=== PATIENT | male | born 1995 | race African-American/Black ===

== ENCOUNTER 2018-09-30 09:45 | Emergency (ER) | payer OTHER ==
[2018-09-30] MEDS ORDERED: Acetaminophen 500 MG TAB ONE (10:10)
[2018-09-30] MEDS ORDERED: Ketorolac Tromethamine 60 MG/2 ML VIAL ONE (10:10)
--- NOTE | 2018-09-30 10:39 | RAD ---
Radiograph right wrist 3 views: DATE: 09/30/2018 HISTORY: 23-year-old male with sudden onset of right wrist pain. COMPARISON: None FINDINGS: No acute fracture is identified. However, if there is snuffbox tenderness that suggests an occult sca phoid fracture, then the general recommendations immobilization and follow-up imaging in 5-10 days. There are old healed fracture deformities of the mid diaphyses of the fourth and fifth metacarpals. T here is prominent dorsal angulation of the fracture apex of the fifth metacarpal. There is ulna minus. No dislocation. IMPRESSION: 1. No evidence of acute fracture. 2. Old, healed boxers fracture deformities of fourth and fifth metacarpals. 3. The fifth metacarpal old fracture deformity is somewhat severely deformed with significant angulat ion. 4. Ulnar negative variance.
--- NOTE | 2018-09-30 10:55 | RAD ---
RIGHT HAND 3 VIEWS: HISTORY: Right hand pain. Unable to move right fourth and fifth digits. FINDINGS: There are old healed fractures of the shafts of the fourth and fifth metacarpals. No acute fracture, dislocation or bony destruction is identified.
== END 2018-09-30 11:20 | disposition home or self-care (01) ==
LOC: NAV ERS 09:45
DX: S63.91XA Sprain of unspecified part of right wrist and hand, initial encounter (principal); I10 Essential (primary) hypertension; F43.10 Post-traumatic stress disorder, unspecified; Z79.899 Other long term (current) drug therapy; X50.1XXA Overexertion from prolonged static or awkward postures, initial encounter
CPT/HCPCS: 96372; J1885